=== PATIENT | male | born 1960 | race Caucasian/White ===

== ENCOUNTER → 2016-11-10 | Outpatient (CLI) | payer BC ==
[2016-11-10 12:26] LABS: CHOLESTEROL/HDL RATIO 3.3
== END | disposition home or self-care (01) ==
LOC: C.LAB1850 10:32
PROVIDERS: ATTEND Urology
DX: Z00.00 Encounter for general adult medical examination without abnormal findings (principal); N40.1 Benign prostatic hyperplasia with lower urinary tract symptoms

== ENCOUNTER → 2016-11-12 | Outpatient (CLI) | payer BC ==
[2016-11-13 06:56] LABS: ESTIMATED AVERAGE GLUCOSE 117 mg/dl; HA1C FLAG Normal (Normal)
== END | disposition home or self-care (01) ==
LOC: C.LAB1850 14:09
PROVIDERS: ATTEND Family Medicine
DX: Z00.00 Encounter for general adult medical examination without abnormal findings (principal)